=== PATIENT | female | born 1955 | race Caucasian/White ===

== ENCOUNTER 2020-10-16 14:01 | Outpatient (CLI) | payer MEDICARE, OTHER | END 2020-10-16 14:02 | disposition home or self-care (01) | LOC: CSHCT 14:01 | PROVIDERS: ATTEND Neurological Surgery | DX: M54.5 Low back pain (principal); M54.16 Radiculopathy, lumbar region; M25.551 Pain in right hip; M47.816 Spondylosis without myelopathy or radiculopathy, lumbar region; Z98.890 Other specified postprocedural states; T84.226A Displacement of internal fixation device of vertebrae, initial encounter | CPT/HCPCS: 72131; 73521 ==